=== PATIENT | female | born 1980 | race Caucasian/White ===

== ENCOUNTER 2020-04-19 10:15 | Outpatient (NON) | payer OTHER, SELFPAY ==
[2020-04-19 15:19] LABS: Influenza Control Positive
== END 2020-04-19 10:16 ==
LOC: ANHCOVIDDT 10:18
PROVIDERS: PCP Family Medicine; Visit Provider Nurse Practitioner Family
DX: R09.89 Other specified symptoms and signs involving the circulatory and respiratory systems (principal)
CPT/HCPCS: 87804

== ENCOUNTER 2023-09-15 10:54 | Outpatient (CLI) | payer OTHER, SELFPAY ==
--- NOTE | ~2023-09-15 | MR_ITS ---
EXAMINATION: MR abdomen wo/w con DATE: 09/15/2023 11:50 INDICATION: Angiomyolipoma TECHNIQUE: Magnetic resonance imaging (MRI) of the abdomen was performed without and with 10 mL Multi raudel intravenous contrast. Sequences included coronal T2-weighted SS-FSE, coronal and axial FS 2D-F IESTA, axial STIR FSE, axial T2-weighted SS-FSE, axial T2-weighted FS SS-FSE, axial diffusion-weighte d SE, axial dual-echo T1-weighted FSPGR, and axial and coronal T1-weighted LAVA. Postcontrast axial T 1-weighted LAVA images were obtained in a time course. Postcontrast coronal T1-weighted LAVA images w ere obtained. COMPARISON: None. FINDINGS: Mild pectus excavatum which impresses upon the anterior wall of the normal sized heart. No pericardia l or pleural effusion. Liver, gallbladder, spleen, pancreas and bilateral adrenal glands are normal. There are at least 10 T1 hyperintense fat saturating macroscopic fat-containing angiomyolipomas in th e right kidney the largest measuring up to 3.5 cm at the upper pole of the right kidney. There are a couple subcentimeter small macroscopic fat attenuation defects at the upper and lower poles of the le ft kidney consistent with additional angiomyolipomas. 9 mm T2 hyperintense nonenhancing cyst in the m id left kidney. Visualized portion of the bowels are unremarkable. No pathologically enlarged abdomin al or upper pelvic lymphadenopathy. Bone marrow signal is normal throughout. IMPRESSION: 1. 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 The multiplicity suggests possibility of underlying phacomatosis such as tuberous sclerosis, von Hippel-Lindau disease or neurofibromatosis type I and can also be seen wi lymphangioleiomyomatosis. Reviewed, dictated and finalized at location B. IMPRESSION: 1. Multiple bilateral macroscopic fat containing renal angiomyolipomas more num erous on the right where the largest measures 3.5 cm. The multiplicity suggests possibility of underlying phacomatosis such as tuberous sclerosis, von Hippel- Lindau disease or neurofibromatosis type I and can also be seen with lymphangio leiomyomatosis.
== END 2023-09-15 10:55 ==
LOC: MICIMG 10:56
PROVIDERS: PCP Internal Medicine Nephrology; Visit Provider Internal Medicine Nephrology
DX: D17.71 Benign lipomatous neoplasm of kidney (principal)
CPT/HCPCS: 74183; A9577